=== PATIENT | female | born 1995 | race Caucasian/White ===

== ENCOUNTER 2018-11-16 10:16 | Emergency (ER) | payer OTHER ==
[2018-11-16 10:49] VITALS: BP 116/65
--- NOTE | 2018-11-16 10:56 | UC ---
UC General HPI - HPI Summary HPI Summary: PT IS C/O A SORE THROAT AND R EAR PAIN X 5 DAYS. SHE HAD SOME N/V LAST PM THAT RESOLVED. NO DIARRHEA. SELF TC IBUPROFEN, LD LAST PM. - History of Current Complaint Chief Complaint: UCGeneralIllness Stated Complaint: RIGHT EAR Time Seen by Provider: 11/16/18 10:50 Hx Obtained From: Patient Hx Last Menstrual Period: 11/02/18 Onset/Duration: Gradual Onset Timing: Constant Pain Intensity: 4 Associated Signs & Symptoms: Negative: Abdominal Pain, Fever, Headache - Allergy/Home Medications Allergies/Adverse Reactions: Allergies Allergy/AdvReac Type Severity Reaction Status Date / Time No Known Allergies Allergy Verified 11/16/18 10:49 Home Medications: Home Medications Desvenlafaxine(NF) [Pristiq(NF)] 1 tab PO DAILY 11/16/18 [History Confirmed 06/01] Ethinyl Estradiol/Drospirenone [Charis 28 Tablet] 1 tab PO DAILY 11/16/18 [ History Confirmed 11/16/18] Ibuprofen TAB* [Advil TAB*] 2 tab PO ONCE 11/16/18 [History Confirmed 11/16/18] buPROPion TAB* [Wellbutrin TAB*] 1 tab PO DAILY 11/16/18 [History Confirmed 06/01] PMH/Surg Hx/FS Hx/Imm Hx Previously Healthy: Yes - Surgical History Surgical History: Yes Surgery Procedure, Year, and Place: rhinoplasty x2 for deviated septum - Social History Occupation: Student Lives: Dormitory/Roommates Alcohol Use: Weekly Substance Use Type: Marijuana Substance Use Comment - Amount & Last Used: weekly Smoking Status (MU): Never Smoked Tobacco - Immunization History Vaccination Up to Date: Yes Review of Systems All Other Systems Reviewed And Are Negative: Yes Constitutional: Negative: Fever, Chills, Fatigue Eyes: Negative: Eye Redness ENT: Positive: Sore Throat, Ear Ache. Negative: Sinus Congestion Respiratory: Negative: Shortness Of Breath, Cough Cardiovascular: Negative: Palpitations, Chest Pain Gastrointestinal: Positive: Vomiting, Nausea. Negative: Abdominal Pain, Diarrhea Physical Exam Triage Information Reviewed: Yes Appearance: Well-Appearing Vital Signs: Initial Vital Signs Temp 98.7 F 11/16/18 10:44 Pulse 83 11/16/18 10:44 Resp 16 11/16/18 10:44 BP 116/65 11/16/18 10:44 Pulse Ox 98 11/16/18 10:44 Vital Signs Reviewed: Yes Eyes: Positive: Conjunctiva Clear ENT: Positive: Pharyngeal erythema - with mild swelling, TMs normal - canals are clear. no mastoid tenderness or auricular adenopathy., Uvula midline. Negative: Nasal congestion, Nasal drainage, Trismus, Muffled voice, Hoarse voice Neck: Positive: Supple, Tenderness @ - peritonsilar nodes, Enlarged Nodes @ - peritonsilar Respiratory: Positive: Lungs clear, Normal breath sounds, No respiratory distress Cardiovascular: Positive: RRR, No Murmur Abdomen Description: Positive: Nontender Neurological: Positive: Alert Psychological: Positive: Age Appropriate Behavior Skin Exam: Normal Skin: Negative: Rashes Diagnostics - Laboratory Lab Results: rapid strep=negative Course/Dx - Differential Dx - Multi-Symptom Differential Diagnoses: Other - rapid strep=neg. no concern for peritonsilar abscess. ear exam unremarkable. antibiotic not indicated. - Diagnoses Provider Diagnosis: Pharyngitis Discharge ED - Sign-Out/Discharge Documenting (check all that apply): Patient Departure All imaging exams completed and their final reports reviewed: No Studies - Discharge Plan Condition: Stable Disposition: HOME Patient Education Materials: Pharyngitis (ED) Forms: *School Release Referrals: [facility] [Outside] Additional Instructions: FOLLOW UP IF NOT BETTER IN 3-5 DAYS OR SOONER IF WORSE. - Billing Disposition and Condition Condition: STABLE Disposition: Home
== END 2018-11-16 11:19 | disposition home or self-care (01) ==
LOC: UCCORT 10:16
DX: J02.9 Acute pharyngitis, unspecified (principal)
CPT/HCPCS: 87651; 99201; G0463

== ENCOUNTER 2018-11-17 10:03 | Emergency (ER) | payer OTHER ==
[2018-11-17 10:19] VITALS: BP 120/76
--- NOTE | 2018-11-17 10:40 | UC ---
Throat Pain/Nasal Terell HPI - HPI Summary HPI Summary: sore throat x 6 days, right ear pain pain is sever 7 out of 10 , right side neck pain from the swollen lymphnode no fever, + chills, - History of Current Complaint Chief Complaint: UCEar Stated Complaint: RE-CK EAR, NOW VOMITING Time Seen by Provider: 11/17/18 10:17 Hx Obtained From: Patient Hx Last Menstrual Period: 11/02/18 Onset/Duration: Gradual Onset, Lasting Days - 6, Still Present Severity: Moderate Pain Intensity: 5 Pain Scale Used: 0-10 Numeric Cough: None Associated Signs & Symptoms: Positive: Nasal Discharge. Negative: Fever - Allergies/Home Medications Allergies/Adverse Reactions: Allergies Allergy/AdvReac Type Severity Reaction Status Date / Time No Known Allergies Allergy Verified 11/17/18 10:14 Home Medications: Home Medications Phenyleph/Acetaminophn/Doxylam [Vicks Dayquil-Nyquil Sinex Cap] 2 each PO Q6H PRN 11/17/18 [History Confirmed 11/17/18] PMH/Surg Hx/FS Hx/Imm Hx Previously Healthy: Yes - Surgical History Surgical History: Yes Surgery Procedure, Year, and Place: Deviated Septum, 2018 2015, [place] - Family History Known Family History: Positive: Non-Contributory - Social History Alcohol Use: Weekly Substance Use Type: Marijuana Substance Use Comment - Amount & Last Used: Weekly Smoking Status (MU): Never Smoked Tobacco - Immunization History Vaccination Up to Date: Yes Review of Systems All Other Systems Reviewed And Are Negative: Yes Constitutional: Positive: Negative Skin: Positive: Negative Eyes: Positive: Negative ENT: Positive: Sore Throat, Ear Ache, Nasal Discharge Respiratory: Positive: Negative Is Patient Immunocompromised?: No Physical Exam Triage Information Reviewed: Yes Appearance: Well-Appearing, No Pain Distress, Well-Nourished Vital Signs: Initial Vital Signs Temp 98.4 F 11/17/18 10:11 Pulse 83 11/17/18 10:11 Resp 16 11/17/18 10:11 BP 120/76 11/17/18 10:11 Pulse Ox 99 11/17/18 10:11 Vital Signs Reviewed: Yes Eye Exam: Normal Eyes: Positive: Conjunctiva Clear ENT Exam: Normal ENT: Positive: Normal ENT inspection, Hearing grossly normal, Pharyngeal erythema, TMs normal. Negative: TM bulging, TM dull, TM red Neck: Positive: No Lymphadenopathy - right side Respiratory Exam: Normal Musculoskeletal Exam: Normal Throat Pain/Nasal Course/Dx - Differential Dx/Diagnosis Provider Diagnosis: Cervical lymphadenopathy Discharge ED - Sign-Out/Discharge Documenting (check all that apply): Patient Departure All imaging exams completed and their final reports reviewed: No Studies - Discharge Plan Condition: Stable Disposition: HOME Patient Education Materials: Pharyngitis (ED), Lymphadenopathy (ED) Referrals: No Primary Care Phys,NOPCP [Primary Care Provider] - Additional Instructions: normal ear exam + right anterior cervical lymphadenopathy cont. with rest, take Ibuprofen as needed for pain and inflammation follow up if not better in 5 days - Billing Disposition and Condition Condition: STABLE Disposition: Home
== END 2018-11-17 10:34 | disposition home or self-care (01) ==
LOC: UCCORT 10:03
DX: R59.1 Generalized enlarged lymph nodes (principal)
CPT/HCPCS: 99211; G0463